=== PATIENT | male | born 1990 | race Caucasian/White ===

== ENCOUNTER 2020-11-15 09:57 | Emergency (ER) | payer OTHER ==
[2020-11-15] MEDS ORDERED: IBUPROFEN800 MG PO (12:32)
[2020-11-15] MEDS ORDERED: CYCLOBENZAPRINE10 MG PO (12:32)
== END 2020-11-15 12:00 | disposition home or self-care (01) ==
LOC: ER1 09:57
DX: S00.93XA Contusion of unspecified part of head, initial encounter (principal); S60.221A Contusion of right hand, initial encounter; S60.021A Contusion of right index finger without damage to nail, initial encounter; S16.1XXA Strain of muscle, fascia and tendon at neck level, initial encounter; V49.40XA Driver injured in collision with unspecified motor vehicles in traffic accident, initial encounter
CPT/HCPCS: 70450; 71045; 72125; 73130; 73590; 90715; 99284; J7030

== ENCOUNTER → 2020-11-20 | Outpatient (CLI) | payer OTHER ==
[~2020-11-20] MED LIST: CYCLOBENZAPRINE10 MG PO; IBUPROFEN800 MG PO
== END ==
LOC: KOH-I 12:58
DX: M79.641 Pain in right hand (principal)
CPT/HCPCS: 73130